=== PATIENT | female | born 1955 | race Caucasian/White ===

== ENCOUNTER 2018-08-12 09:49 | Inpatient (IN) | payer MEDICARE ==
[~2018-08-12] VITALS: Ht 162.6 cm; Wt 99.6 kg
[~2018-08-12 09:49] MED LIST: ASPIRIN 32325 MG/TAB PO; B-121000 MCG PO; CELEXA 20MG20 MG/TAB PO; DYAZIDE 25 MG-31 CAP PO; ESTRACE 1MG1 MG/TAB PO; FOLIC ACID0.4 MG PO; GLUCOPHAGE1000 MG PO; HEXAVITAMIN1 CAP PO; HUMALOG100 U/ML SC; LANTUS100 U/ML SC; NORCO 325 MG-7.1 TAB PO; PERCOCET 325 MG1 TA2 PO; PRAVACHOL 20MG20 MG PO; SIMETHICONE80 MG PO; SOMA 350MG350 MG/TAB PO; SYNTHROID0.075 MG/T PO; TUMS500 MG PO; XANAX .25M0.25 MG/TA PO
[2018-09-18] MEDS ORDERED: TRESIBA FL200 UNIT/1 SQ (05:42)
[2018-09-20] MEDS ORDERED: TRESIBA FL200 UNIT/1 SQ (14:00)
[2018-09-20] MEDS ORDERED: ASPIRIN 32325 MG/TA1 PO (14:01)
[2018-09-20] MEDS ORDERED: COLACE 100100 MG/CAP PO (14:01)
[2018-09-21] MEDS ORDERED: NORVASC 5MG5 MG/TAB PO (11:47)
[2018-09-21] MEDS ORDERED: NORCO 325 MG-7.1 TAB PO (12:03)
[2019-04-25] VITALS (10 sets, daily range): BP systolic 92–143; BP diastolic 47–99; PULSE 62–78; TEMP 97.8–98.1
[2019-04-25] MEDS ORDERED: COZAAR 50MG50 MG/TAB PO (07:44)
[2019-04-25] MEDS ORDERED: MAXZIDE-25MG TA1 TAB PO (07:45)
[2019-04-25] MEDS ORDERED: NOVOLOG 100U100 U/M1 SQ (07:49)
--- NOTE | 2019-04-25 12:40 | NUR ---
PATIENT BACK IN ROOM 328 POST OP. A&O. VSS. DENIES PAIN. PATIENT IS UNABLE TO MOVE BLE AT THIS TIME. LTK DRESSING IS CD&I WITH AQUACEL AND CRYOCUFF INPLACE. TEDS TO BLE. POSITIVE PEDAL PULSES TO BLE. HUSAIN TO DEPENDENT DRAINAGE WITH SMALL AMOUNTS OF CLEAR YELLOW URINE. IV FLUIDS INFUSING VIA PUMP. NO C/O N/V. LIQUIDS AT BEDSIDE. HEAD TO TOE ASSESSMENT WNL. AT BEDSIDE. CALL LIGHT IN REACH.
--- NOTE | 2019-04-25 13:28 | NUR ---
JOSE met with the patient and patient's , Misha, to discuss discharge plan. The patient lives in [place] with her . She reports independence with ADLs and has a cane, walker, and wheelchair. The patient's PCP is Dr. Clement Kinney and she receives her medications at [facility]. She reports no difficulties obtaining her meds. The patient's DPOA-HC is in EMR. The patient plans to return home with her and receive outpatient therapy at [facility] upon discharge. No additional needs at this time.
[2019-04-25] MEDS ORDERED: TRESIBA FL200 UNIT/1 SQ (16:48)
--- NOTE | 2019-04-25 20:45 | NUR ---
Pt. sitting up in bed at this time. Pt. is A&OX3, assessment complete. INT to rt. hand patent. Dressing to lt. knee CDI. Cryocuff to lt. knee. SCD's and TEDs on at this time. Pt. denies pain, call light within reach.
--- NOTE | 2019-04-25 22:52 | NUR ---
Pt. ambulated in the halls at this time. See activity.
[2019-04-26] VITALS: BP 134/72; PULSE 61; TEMP 98.3
[2019-04-26 03:52] VITALS: BP 115/48; PULSE 72; TEMP 97.8
[2019-04-26 06:29] LABS: HEMOGLOBIN 11.5 g/dl (12.5-16.0)
[2019-04-26 06:32] LABS: HEMATOCRIT 34.3 % (37.0-47.0)
--- NOTE | 2019-04-26 06:38 | NUR ---
Pt. slept off and on through the night. Pt. remains A&OX3. Dressing to lt. knee cdi. Pt. denie further needs at this time. Call light within reach.
--- NOTE | 2019-04-26 06:40 | NUR ---
awake resting in bed, bedside shift report received from RILEY Bill
[2019-04-26 06:43] LABS: CALCIUM 7.7 mg/dL (8.4-10.2); CREATININE, serum 0.91 (0.52-1.25)
[2019-04-26 07:00] VITALS: BP 141/50; PULSE 72; TEMP 97.9
--- NOTE | 2019-04-26 07:50 | NUR ---
resting in bed, azul catheter discontinued, full assessment completed, see interventions for further info, c/o pain and medicated with roxicodone 10mg
[2019-04-26] MEDS ORDERED: ULTRAM 50MG TAB50 MG PO (08:09)
--- NOTE | 2019-04-26 08:58 | NUR ---
physical therapy in to work with patient
--- NOTE | 2019-04-26 09:18 | NUR ---
occupational therapy now in to visit with patient
--- NOTE | 2019-04-26 11:15 | NUR ---
dr Nichols in to see patient, discharge instructions given to patient and her , verbalizes understanding
--- NOTE | 2019-04-26 11:37 | NUR ---
discharged per WC
== END 2019-04-26 11:37 | disposition home or self-care (01) | DRG 470 ==
LOC: JCC 10-25 07:30
PROVIDERS: Physician Assistant; ADMIT Orthopaedic Surgery
PROC: 0SRD0J9 Replacement of Left Knee Joint with Synthetic Substitute, Cemented, Open Approach (ICD-10-PCS; principal; 2019-04-25 10:15)
DX: M17.12 Unilateral primary osteoarthritis, left knee (principal); F32.9 Major depressive disorder, single episode, unspecified; I10 Essential (primary) hypertension; E78.00 Pure hypercholesterolemia, unspecified; F41.9 Anxiety disorder, unspecified; M21.062 Valgus deformity, not elsewhere classified, left knee; E03.9 Hypothyroidism, unspecified; E11.65 Type 2 diabetes mellitus with hyperglycemia; E66.9 Obesity, unspecified; Z68.37 Body mass index [BMI] 37.0-37.9, adult; J30.2 Other seasonal allergic rhinitis; F17.210 Nicotine dependence, cigarettes, uncomplicated; Z90.710 Acquired absence of both cervix and uterus; Z79.1 Long term (current) use of non-steroidal anti-inflammatories (NSAID); Z98.1 Arthrodesis status; Z88.5 Allergy status to narcotic agent
CPT/HCPCS: 99222; A4314; A9284; C1776; J0690; J1100; J1815; J2250; J2405; J2704; J3010; J3370; J7120

== ENCOUNTER 2018-09-18 02:53 | Inpatient (IN) | payer MEDICARE, OTHER ==
[~2018-09-18] VITALS: Ht 165.1 cm; Wt 104.1 kg
[2018-09-18] VITALS (11 sets, daily range): BP systolic 117–171; BP diastolic 47–99; PULSE 55–82; TEMP 97.9–98.6
[2018-09-18] MEDS ORDERED: TRESIBA FL200 UNIT/1 SQ (05:42)
[2018-09-18 06:12] LABS: INR 0.9 (0.8-3.0); PROTHROMBIN TIME 10.6 SECONDS (9.7-12.8)
[2018-09-18 10:21] LABS: BASO % 0.3 % (0.0-2.0); EOS # 0.1 (0.0-0.7); EOS % 1.6 % (0-4.0); GRAN # 4.4 (1.4-6.5); GRAN % 63.4 % (42.2-75.2); LYMPH # 1.8 (1.2-3.4); LYMPH % 25.5 % (20.0-51.0); MEAN CELL VOLUME 90 fl (80.0-100.0); MEAN CORPUSCULAR HEMOGLOBIN 29 pg (27.0-31.0); MEAN CORPUSCULAR HGB CONC 32 g/dl (33.0-37.0); MEAN PLATELET VOLUME 10.8 fl (7.4-10.4); MONO # 0.6 (0.1-0.6); MONO % 9.1 % (1.7-9.3); PLATELET COUNT 213 K/mm3 (130-400); RED BLOOD COUNT 4.13 M/mm3 (4.10-5.30); REDCELL DISTRIBUTION WIDTH-CV 13.5 % (11.5-14.5)
[2018-09-18 10:28] LABS: ALBUMIN 2.9 gm/dL (3.5-5.0); BILIRUBIN,TOTAL 0.1 mg/dL (0.0-1.0); CREATININE, serum 0.81 mg/dL (0.52-1.25); POTASSIUM 4.7 mmol/L (3.4-5.0); TOTAL PROTEIN 6.1 gm/dL (6.4-8.2)
[2018-09-19] VITALS: BP 165/53; PULSE 76; TEMP 98.9
[2018-09-19 04:00] VITALS: BP 158/49; PULSE 73; TEMP 97.6
[2018-09-19 06:43] LABS: BASO % 0.4 % (0.0-2.0); EOS # 0.1 (0.0-0.7); EOS % 0.9 % (0-4.0); GRAN # 5.6 (1.4-6.5); GRAN % 72.4 % (42.2-75.2); HEMOGLOBIN 11.9 g/dl (12.5-16.0); LYMPH # 1.4 (1.2-3.4); LYMPH % 17.9 % (20.0-51.0); MEAN CELL VOLUME 88 fl (80.0-100.0); MEAN CORPUSCULAR HEMOGLOBIN 30 pg (27.0-31.0); MEAN CORPUSCULAR HGB CONC 34 g/dl (33.0-37.0); MEAN PLATELET VOLUME 10.6 fl (7.4-10.4); MONO # 0.6 (0.1-0.6); PLATELET COUNT 193 K/mm3 (130-400); RED BLOOD COUNT 4.01 M/mm3 (4.10-5.30); REDCELL DISTRIBUTION WIDTH-CV 13.7 % (11.5-14.5)
[2018-09-19 06:44] LABS: HEMATOCRIT 35.4 % (37.0-47.0)
[2018-09-19 06:57] LABS: ALBUMIN 2.8 gm/dL (3.5-5.0); BILIRUBIN,TOTAL 0.2 mg/dL (0.0-1.0); CALCIUM 7.6 mg/dL (8.4-10.2); CREATININE, serum 0.82 mg/dL (0.52-1.25); POTASSIUM 4.4 mmol/L (3.4-5.0); TOTAL PROTEIN 5.8 gm/dL (6.4-8.2)
[2018-09-19 07:49] VITALS: BP 135/63; PULSE 63; TEMP 98
[2018-09-19 08:17] LABS: MUCOUS Present /lpf; PH 5 (5-8); URINE APPEARANCE Clear; URINE BACTERIA None Seen /hpf; URINE BILIRUBIN Negative (NEGATIVE); URINE BLOOD Negative (NEGATIVE); URINE COLOR Yellow; URINE GLUCOSE Negative (NEGATIVE); URINE KETONE Negative (NEGATIVE); URINE LEUKOCYTE ESTERASE Trace (NEGATIVE); URINE NITRATE Negative (NEGATIVE); URINE PROTEIN(semi-quant) 2+ (NEGATIVE); URINE UROBILINOGEN Negative (NEGATIVE)
[2018-09-19 08:33] LABS: COLLECTION METHOD CLEAN CATCH
[2018-09-19 11:53] VITALS: BP 153/60; PULSE 62; TEMP 97.9
[2018-09-19 15:56] VITALS: BP 169/62; PULSE 61; TEMP 97.8
[2018-09-19 19:45] VITALS: BP 153/74; PULSE 72; TEMP 98.2
[2018-09-20 01:00] VITALS: BP 170/68; PULSE 73; TEMP 99.1
[2018-09-20 04:12] VITALS: BP 167/76; PULSE 76; TEMP 98.6
[2018-09-20 06:12] LABS: HEMATOCRIT 36.8 % (37.0-47.0)
[2018-09-20 08:24] VITALS: BP 144/52; PULSE 66; TEMP 98.5
[2018-09-20 12:06] VITALS: BP 136/52; PULSE 67; TEMP 98.5
[2018-09-20] MEDS ORDERED: TRESIBA FL200 UNIT/1 SQ (14:00)
[2018-09-20] MEDS ORDERED: COLACE 100100 MG/CAP PO (14:01)
[2018-09-20] MEDS ORDERED: ASPIRIN 32325 MG/TA1 PO (14:01)
[2018-09-20 16:27] VITALS: BP 176/93; PULSE 76; TEMP 98.6
[2018-09-21 03:53] VITALS: BP 159/58; PULSE 75; TEMP 98.4
[2018-09-21 09:05] VITALS: BP 154/60; PULSE 70; TEMP 97.7
[2018-09-21 11:35] VITALS: BP 178/68; PULSE 71; TEMP 97.8
[2018-09-21] MEDS ORDERED: NORVASC 5MG5 MG/TAB PO (11:47)
[2018-09-21] MEDS ORDERED: NORCO 325 MG-7.1 TAB PO (12:03)
== END 2018-09-21 13:15 | disposition home or self-care (01) | DRG 482 ==
LOC: SURG 02:53
PROVIDERS: Hospitalist; Nurse Practitioner; Orthopaedic Surgery; Physician Assistant
PROC: 0QH634Z Insertion of Internal Fixation Device into Right Upper Femur, Percutaneous Approach (ICD-10-PCS; principal; 2018-09-18 11:00)
DX: S72.044A Nondisplaced fracture of base of neck of right femur, initial encounter for closed fracture (principal); W18.30XA Fall on same level, unspecified, initial encounter; E11.42 Type 2 diabetes mellitus with diabetic polyneuropathy; I10 Essential (primary) hypertension; E11.65 Type 2 diabetes mellitus with hyperglycemia; E05.00 Thyrotoxicosis with diffuse goiter without thyrotoxic crisis or storm; Z85.030 Personal history of malignant carcinoid tumor of large intestine; F17.210 Nicotine dependence, cigarettes, uncomplicated; E78.5 Hyperlipidemia, unspecified; F41.8 Other specified anxiety disorders; Z79.4 Long term (current) use of insulin
CPT/HCPCS: 99222-AI; 99232-AI; 99239; A9284; C1713; J0690; J1815; J2250; J2270; J2704; J3010; J7120

== ENCOUNTER 2021-10-08 16:25 | Emergency (ER) | payer MEDICARE ==
[~2021-10-08] VITALS: Ht 162.6 cm; Wt 102.3 kg
[~2021-10-08 16:25] MED LIST changes: +ASPIRIN 32325 MG/TA1 PO; +COLACE 100100 MG/CAP PO; +COZAAR 50MG50 MG/TAB PO; +MAXZIDE-25MG TA1 TAB PO; +NORVASC 5MG5 MG/TAB PO; +NOVOLOG 100U100 U/M1 SQ; +TRESIBA FL200 UNIT/1 SQ; +ULTRAM 50MG TAB50 MG PO
[2021-10-08 17:27] LABS: HEMATOCRIT 41.7 % (37.0-47.0); HEMOGLOBIN 13.9 g/dl (12.5-16.0); MEAN CELL VOLUME 87 fl (80.0-100.0); MEAN CORPUSCULAR HEMOGLOBIN 29 pg (27.0-31.0); MEAN CORPUSCULAR HGB CONC 33 g/dl (33.0-37.0); MEAN PLATELET VOLUME 11.2 fl (7.4-10.4); PLATELET COUNT 247 K/mm3 (130-400); RED BLOOD COUNT 4.81 M/mm3 (4.10-5.30); REDCELL DISTRIBUTION WIDTH-CV 14.6 % (11.5-14.5)
[2021-10-08 17:47] LABS: ALBUMIN 2.5 gm/dL (3.4-4.8); BILIRUBIN,TOTAL 0.5 mg/dL (0.2-1.2); CALCIUM 8.9 mg/dL (8.4-10.2); CREATININE, serum 2.01 mg/dL (0.57-1.11); POTASSIUM 4.1 mmol/L (3.5-4.5); TOTAL PROTEIN 6.1 gm/dL (6.2-8.1)
[2021-10-08 18:05] LABS: BAND 8 % (0-10); LYMPHOCYTE 6 % (20.0-51.0); NEUTROPHILS 85 % (42.0-75.2); PLATELET ESTIMATE NORMAL (NORMAL)
[2021-10-08 22:26] VITALS: BP 119/63; PULSE 85; TEMP 98.6
== END 2021-10-08 22:46 | disposition short-term general hospital (02) ==
LOC: COL.ER 16:25
PROVIDERS: Obstetrics & Gynecology
DX: N75.1 Abscess of Bartholin's gland (principal); I10 Essential (primary) hypertension; E03.9 Hypothyroidism, unspecified; E05.00 Thyrotoxicosis with diffuse goiter without thyrotoxic crisis or storm; E10.9 Type 1 diabetes mellitus without complications; Z79.4 Long term (current) use of insulin; Z79.890 Hormone replacement therapy; Z79.899 Other long term (current) drug therapy
CPT/HCPCS: J2543; J7030

== ENCOUNTER 2022-04-22 12:03 | Inpatient (IN) | payer MEDICARE ==
[~2022-04-22] VITALS: Ht 175.3 cm; Wt 80.1 kg
[2022-04-22] VITALS (605 sets, daily range): BP systolic 140–173; BP diastolic 60–117; PULSE 72–81; TEMP 96.6–97.9; O2SAT 80–100
--- NOTE | 2022-04-22 13:51 | NUR ---
PT ARRIVED VIA EMS AT 1351, MOVED TO ICU BED, PLACED ON MONITORING. PT AWAKE BUT CONFUSED, ORIENTED TO SELF ONLY. PT BECAME COMBATIVE TO STAFF. HOSPITALIST NOTIFIED OF PT ARRIVAL. WILL CONTINUE W/ ADMISSION.
[2022-04-22 14:59] LABS: BASO % 0.2 % (0.0-2.0); GRAN # 8.2 K/mm3 (1.4-6.5); GRAN % 84.2 % (42.2-75.2); HEMATOCRIT 22.4 % (37.0-47.0); LYMPH # 1.1 K/mm3 (1.2-3.4); LYMPH % 11.4 % (20.0-51.0); MEAN CELL VOLUME 99 fl (80.0-100.0); MEAN CORPUSCULAR HEMOGLOBIN 31 pg (27-31); MEAN CORPUSCULAR HGB CONC 31 g/dl (33.0-37.0); MEAN PLATELET VOLUME 10.8 fl (7.4-10.4); MONO # 0.4 K/mm3 (0.1-0.6); MONO % 3.7 % (1.7-9.3); PLATELET COUNT 228 K/mm3 (130-400); RED BLOOD COUNT 2.26 M/mm3 (4.10-5.30); REDCELL DISTRIBUTION WIDTH-CV 16.6 % (11.5-14.5)
[2022-04-22 15:04] LABS: INR 1.1 (0.8-3.0); PROTHROMBIN TIME 13.1 SECONDS (9.7-12.8)
[2022-04-22 15:30] LABS: ALBUMIN 2.5 gm/dL (3.4-4.8); BILIRUBIN,TOTAL 0.6 mg/dL (0.2-1.2); C-REACTIVE PROTEIN 2.43 mg/dL (0.00-0.50); CALCIUM 7.8 mg/dL (8.4-10.2); CREATININE, serum 3.01 mg/dL (0.57-1.11); TOTAL PROTEIN 5.4 gm/dL (6.2-8.1)
[2022-04-22 15:42] LABS: POTASSIUM 5.8 mmol/L (3.5-4.5)
[2022-04-22 15:47] LABS: TROPONIN-I 0.037 ng/mL (0.00-0.033)
--- NOTE | 2022-04-22 15:50 | NUR ---
BESIDE CENTRAL LINE INSERTION. RIJ.
[2022-04-22] MEDS ORDERED: TYLENOL 325MG325 MG PO (16:29)
[2022-04-22] MEDS ORDERED: SYMMETREL100 MG PO (16:30)
[2022-04-22] MEDS ORDERED: NATURAL C500 MG PO (16:30)
[2022-04-22] MEDS ORDERED: ASPIRIN 81M81 MG/TA2 PO (16:31)
[2022-04-22] MEDS ORDERED: COREG12.5 MG PO (16:32)
[2022-04-22] MEDS ORDERED: PLAVIX 75MG TAB75 MG PO (16:33)
[2022-04-22] MEDS ORDERED: CELEBREX 200MG200 MG PO (16:33)
[2022-04-22] MEDS ORDERED: CYMBALTA 30MG30 MG PO (16:34)
[2022-04-22] MEDS ORDERED: HUMALOG100 U/ML (16:45)
[2022-04-22] MEDS ORDERED: LANTUS SOLOS100 U/ML (16:46)
[2022-04-22] MEDS ORDERED: SALONPAS1 EACH TP (16:52)
[2022-04-22] MEDS ORDERED: NORCO 325 MG-101 TAB PO (16:54)
[2022-04-22] MEDS ORDERED: LEADER CLE17 GM/Dose PO (16:54)
[2022-04-22] MEDS ORDERED: PREPH RC (16:55)
[2022-04-22] MEDS ORDERED: SALINE 45 ML45 ML NS (16:56)
[2022-04-22] MEDS ORDERED: SEROQUEL 2525 MG/TAB PO (16:57)
[2022-04-22] MEDS ORDERED: SEROQUEL 2525 MG/TAB (16:57)
[2022-04-22] MEDS ORDERED: PHARMASSURE CHE30 MG PO (16:59)
--- NOTE | 2022-04-22 17:38 | NUR ---
CENTRAL LINE PLACEMENT PROCEDURE TIMEOUT DONE AT 1523. LINE PLACED BY DR LANDERS AT 1545. STATES AFTER XRAY CONFIRMATION LINE IS GOOD TO USE.
[2022-04-22] MEDS ORDERED: MELATIN 3 MG-11 TAB PO (19:21)
--- NOTE | 2022-04-22 19:21 | NUR ---
PT MED REC COMPLETD BASED ON MED LIST FROM PATIENTS' HALFWAY AT [facility].
--- NOTE | 2022-04-22 20:15 | NUR ---
Assessment complete and charted. Patient given bed bath and repositioned.
[2022-04-22 21:08] LABS: HEMOGLOBIN 8.6 g/dl (12.5-16.0)
[2022-04-23] VITALS (1001 sets, daily range): BP systolic 130–155; BP diastolic 54–74; PULSE 72–83; TEMP 97.1–98.1; O2SAT 75–100
--- NOTE | 2022-04-23 01:32 | NUR ---
BG 60. Given PRN dextrose
[2022-04-23 05:18] LABS: PROTHROMBIN TIME 11.5 SECONDS (9.7-12.8)
[2022-04-23 05:20] LABS: BASO # 0.1 K/mm3 (0.0-0.2); BASO % 0.5 % (0.0-2.0); EOS # 0.1 K/mm3 (0.0-0.7); EOS % 0.8 % (0.0-4.0); GRAN % 64.3 % (42.2-75.2); LYMPH # 2.3 K/mm3 (1.2-3.4); LYMPH % 25.1 % (20.0-51.0); MEAN CORPUSCULAR HGB CONC 34 g/dl (33.0-37.0); MEAN PLATELET VOLUME 10.3 fl (7.4-10.4); MONO # 0.8 K/mm3 (0.1-0.6); MONO % 8.9 % (1.7-9.3); PLATELET COUNT 207 K/mm3 (130-400); REDCELL DISTRIBUTION WIDTH-CV 16.8 % (11.5-14.5)
[2022-04-23 05:21] LABS: HEMATOCRIT 24.8 % (37.0-47.0); HEMOGLOBIN 8.3 g/dl (12.5-16.0); MEAN CELL VOLUME 92 fl (80.0-100.0); MEAN CORPUSCULAR HEMOGLOBIN 31 pg (27-31)
[2022-04-23 05:27] LABS: ALBUMIN 2.3 gm/dL (3.4-4.8); BILIRUBIN,TOTAL 0.6 mg/dL (0.2-1.2); CALCIUM 7.6 mg/dL (8.4-10.2); CREATININE, serum 2.37 mg/dL (0.57-1.11); MAGNESIUM 1.9 mg/dL (1.6-2.6); POTASSIUM 3.8 mmol/L (3.5-4.5); TOTAL PROTEIN 5.4 gm/dL (6.2-8.1)
[2022-04-23 05:48] LABS: TROPONIN-I 0.033 ng/mL (0.00-0.033); TSH w REFLEX 84.271 uIU/mL (0.350-4.940)
--- NOTE | 2022-04-23 07:00 | NUR ---
BEDSIDE REPORT RECEIVED FROM RILEY SALGADO. PT APPEARS TO BE SLEEPING AT THIS TIME. RIJ TLC IN PLACE; FLUIDS INFUSING AT THIS TIME. FC TO DEPENDENT DRAINAGE RECTAL TUBE IN PLACE AND DRAINING. MITTENS ON PATIENT TO PREVENT PT FROM PULLING AT LINES AND TUBES.
--- NOTE | 2022-04-23 07:29 | NUR ---
Report given to Cindy LIN
--- NOTE | 2022-04-23 09:20 | NUR ---
The patient is sleeping. JOSE contacted the patient's , Misha (ph#[phone]), to discuss discharge plan. The patient resides at [facility] for long-term care. Misha states that she has been living there since 12/09/21. The patient's PCP is Dr. Clement Kinney and her DPOA-HC is in EMR. It designates her . Misha states that the plan is for the patient to return back to [facility] upon discharge. JOSE contacted and faxed updates to [facility]. SW to continue to follow. *Discharge plan: [facility]*
--- NOTE | 2022-04-23 10:01 | NUR ---
THIS NURSE SPOKE WITH DR. CIFUENTES REGARDING PLAN FOR PT. DR. CIFUNETES STATES SHE HAS NOT YET SEEN PT, SO SHE DOES NOT YET HAVE A PLAN. DR. CIFUENTES PLANS TO SEE PT TODAY; NO PROCEDURES TODAY.
--- NOTE | 2022-04-23 17:05 | NUR ---
PT TRANSFERED TO SURGICAL FLOOR ROOM 345. REPORT GIVEN TO RILEY ANDERSON PRIOR TO TRANSFEREING PT. PT'S BELONGINGS CONSISTING OF SET OF PAJAMAS, BALLOON, CARD, AND STUFFED ANIMAL ALL TAKEN TO ROOM 345. RILEY ANDERSON MADE AWARE OF PT'S ARRIVAL TO 345. BED ALARM TURNED ON. PT RESTING COMFORTABLY; OFFERS NO COMPLAINTS.
[2022-04-23 18:23] LABS: HEMATOCRIT 25.9 % (37.0-47.0); HEMOGLOBIN 8.6 g/dl (12.5-16.0)
--- NOTE | 2022-04-23 22:05 | NUR ---
Patient assessed around 1940. Alert and oriented to self. Complained of left sided pain and given PRN APAP. Has indwelling azul catheter, as well as a rectal tube. Dressing to bottom CDI. 1+ edema BUE and BLE. In bed with call light within reach. Bed alarm on.
[2022-04-24 03:41] VITALS: BP 153/56; PULSE 80; TEMP 97.7
--- NOTE | 2022-04-24 05:54 | NUR ---
Patient has been awake most of shift. Needed redirection to time, place, and situation, but very forgetful. Continues on IV fluids per orders. Patient did not have output through rectal tube. Indwelling azul catheter in place. Mitts put on patient due to patient pulling at triple lumen central line to right IJ. Redressed. Has been NPO since midnight for EGD today. Did take medications with sips of water. In bed with call light within reach. Bed alarm on.
[2022-04-24 07:08] LABS: BASO % 0.5 % (0.0-2.0); EOS # 0.2 K/mm3 (0.0-0.7); EOS % 1.9 % (0.0-4.0); GRAN # 5.2 K/mm3 (1.4-6.5); GRAN % 67.5 % (42.2-75.2); LYMPH # 1.7 K/mm3 (1.2-3.4); LYMPH % 22.4 % (20.0-51.0); MEAN CELL VOLUME 94 fl (80.0-100.0); MEAN CORPUSCULAR HGB CONC 33 g/dl (33.0-37.0); MEAN PLATELET VOLUME 10.5 fl (7.4-10.4); MONO # 0.6 K/mm3 (0.1-0.6); MONO % 7.2 % (1.7-9.3); PLATELET COUNT 202 K/mm3 (130-400); RED BLOOD COUNT 2.51 M/mm3 (4.10-5.30); REDCELL DISTRIBUTION WIDTH-CV 17.5 % (11.5-14.5)
[2022-04-24 07:14] LABS: HEMATOCRIT 23.6 % (37.0-47.0); HEMOGLOBIN 7.8 g/dl (12.5-16.0); MEAN CORPUSCULAR HEMOGLOBIN 31 pg (27-31)
--- NOTE | 2022-04-24 07:14 | NUR ---
UPON ASSESSMENT OF THIS PATIENT AFTER SHIFT REPORT IT WAS DISCOVERED BY THIS NURSE THAT PATIENT HAD COMPLETELY DISLODGED RIGHT SIDED IJ CENTRAL LINE. CATHETER INTACT WITH TIP. SUTURES HOLDING LINE IN PLACE REMOVED AND LINE DISCARDED. INFORMED DR ASENCIO AND KEMAR WHO ARE BOTH ON PATIENT CASE. VERBAL ORDER FROM KEMAR TO ATTEMPT TO START PIV AT THIS TIME OVER PICC PLACEMENT. PATIENT SCHEDULED FOR EGD/COLON LATER THIS AFTERNOON.
[2022-04-24 07:18] LABS: ALBUMIN 2.3 gm/dL (3.4-4.8); BILIRUBIN,TOTAL 0.4 mg/dL (0.2-1.2); CALCIUM 7.7 mg/dL (8.4-10.2); CREATININE, serum 1.55 mg/dL (0.57-1.11); POTASSIUM 3.5 mmol/L (3.5-4.5); TOTAL PROTEIN 5.2 gm/dL (6.2-8.1)
[2022-04-24 07:41] VITALS: BP 140/68; PULSE 81; TEMP 97.7
--- NOTE | 2022-04-24 10:21 | NUR ---
Initial visit; Patient thanked Mechanical Supervisor for looking in on her. She says she isn't doing well but was receptive to being kept in Mechanical Supervisor's prayers. Mechanical Supervisor offered God's blessings.
--- NOTE | 2022-04-24 11:03 | NUR ---
Screen Printing Inspector faxed clinical updates to [facility].
[2022-04-24 11:56] VITALS: BP 149/69; PULSE 76
--- NOTE | 2022-04-24 19:49 | NUR ---
ASSESSMENT COMPLETE. PT. LYING IN BED ASKING FOR AND WANTING TO GO HOME. PT. ALERT BUT NOT ORIENTED. PT. REORIENTED TO HOSPITAL ROOM AND DISTRACTED. PERIWICK IN PLACE WITH NO URINE OUTPUT. PT. HAS NOT URINATED SINCE HUSAIN HAS BEEN TAKEN OUT PER PREVIOUS NURSE. IV TO RIGHT FOREARM INFUSING WITH 1/2 NS AT 60 ML/HR. SMALL SCAB TO RIGHT HEEL. HEEL PROTECTORS IN PLACE. CALL LIGHT IN REACH. NO FURTHER NEEDS AT THIS TIME. WILL CLOSELY MONITOR.
[2022-04-24 21:10] VITALS: BP 159/57; PULSE 84; TEMP 97.7
[2022-04-25 00:21] VITALS: BP 176/74; PULSE 87; TEMP 98
--- NOTE | 2022-04-25 03:33 | NUR ---
PT. PULLED OUT IV. BLEEDING CONTROLLED. PER VERBAL ORDER A NEW IV DOES NOT NEED TO BE PLACED.
[2022-04-25 04:06] VITALS: BP 166/65; PULSE 81; TEMP 97.9
--- NOTE | 2022-04-25 05:15 | NUR ---
PT. SLEPT THROUGHOUT THE NIGHT, OCCASIONALLY WAKING UP CONFUSED. PT. WAS REORIENTED OR DISTRACTED. PT. WAS INCONTIENT OF STOOL AND URINE DURING THE NIGHT. PER PREVIOUS NOTE, PT PULLED HER IV OUT. NO FURTHER NEEDS. WILL CONTINUE TO MONITOR.
[2022-04-25 06:46] LABS: BASO % 0.5 % (0.0-2.0); EOS # 0.2 K/mm3 (0.0-0.7); EOS % 2.9 % (0.0-4.0); GRAN # 5.5 K/mm3 (1.4-6.5); GRAN % 66.2 % (42.2-75.2); LYMPH # 1.9 K/mm3 (1.2-3.4); LYMPH % 22.7 % (20.0-51.0); MEAN CELL VOLUME 95 fl (80.0-100.0); MEAN CORPUSCULAR HGB CONC 33 g/dl (33.0-37.0); MEAN PLATELET VOLUME 10.7 fl (7.4-10.4); MONO # 0.6 K/mm3 (0.1-0.6); MONO % 7.5 % (1.7-9.3); PLATELET COUNT 192 K/mm3 (130-400); RED BLOOD COUNT 2.71 M/mm3 (4.10-5.30); REDCELL DISTRIBUTION WIDTH-CV 17.6 % (11.5-14.5)
[2022-04-25 06:56] LABS: HEMATOCRIT 25.8 % (37.0-47.0); HEMOGLOBIN 8.4 g/dl (12.5-16.0); MEAN CORPUSCULAR HEMOGLOBIN 31 pg (27-31)
[2022-04-25 07:10] LABS: ALBUMIN 2.5 gm/dL (3.4-4.8); BILIRUBIN,TOTAL 0.5 mg/dL (0.2-1.2); CALCIUM 7.7 mg/dL (8.4-10.2); POTASSIUM 3.5 mmol/L (3.5-4.5); TOTAL PROTEIN 5.9 gm/dL (6.2-8.1)
[2022-04-25 08:00] VITALS: BP 174/75; PULSE 90; TEMP 97.9
[2022-04-25 11:09] VITALS: BP 163/71; PULSE 89; TEMP 97.8
--- NOTE | 2022-04-25 12:11 | NUR ---
Cripple Cutter is informed by patient medical team (Dr. Obrien, Gabrielle, Director Software, and Shilpa RN) that patient is medically stable for discharge back to in [place] where they currently reside. Cripple Cutter contacted patient [facility] [place] ([phone]) and spoke to Heather. [place] to contact DON and will call this Cripple Cutter back to confirm plan of care. *Discharge plan: Awaiting confirmation from to return for discharge*
--- NOTE | 2022-04-25 12:17 | NUR ---
Residential Real Estate Agent contacted patient spouse Misha to update; spouse may not be able to transport patient back to due to her mobility but he is in support of plan. He requests a call back when plan is confirmed and to identify mode of transportation. Residential Real Estate Agent continues to follow.
--- NOTE | 2022-04-25 13:25 | NUR ---
Insurance Consultant again contacted [facility] ([phone]). SAFETY FIRE BOSS informs the nurse is "aware of situation" and will call this Insurance Consultant back to confirm discharge plan of care for patient to return to [facility] today.
--- NOTE | 2022-04-25 13:33 | NUR ---
Received report from date night sitter. Patient here for GI bleed. Patient alert to self only. Assessment performed. AM meds administered. Dressing to coccyx changed. Call light within reach.
--- NOTE | 2022-04-25 14:48 | NUR ---
Attempted to call [facility]. Cannot accept patients on the weekends due to low staffing and transportation issues.
--- NOTE | 2022-04-25 15:06 | NUR ---
Shilpa RN informs this Waste Disposal Plant Operator that the [facility] nurse contacted to inform they have a "skeletal staff and no transportation available over the holiday weekend." They anticipate no abiliy to return patient to their facility where she currently resides until the weekend is over. Dr. Obrien, Gabrielle Vehicle Upholsterer and patient spouse at bedside updated. *Discharge plan: return [facility] where patient currently resides*
[2022-04-25 16:00] VITALS: BP 166/65; PULSE 74; TEMP 97.9
--- NOTE | 2022-04-25 17:57 | NUR ---
Patient incontinent of stool and urine. Changed bedding, gown, and pressure dressing. Patient combative. Applied mittens. Call light near.
[2022-04-25 21:35] VITALS: BP 152/51; PULSE 73; TEMP 97.8
[2022-04-26 00:15] VITALS: BP 145/66; PULSE 75; TEMP 98.7
[2022-04-26 04:21] VITALS: BP 142/62; PULSE 80; TEMP 98.1
--- NOTE | 2022-04-26 04:52 | NUR ---
Pt is not A&O, had difficulty telling me her name and date of . Pt has been combative throughout the night and spit out her medication on the first administration. Pt shouting out throughout the night and attempting to removed mitts. Pt denies pain throughout the shift. Per report the correction that she is from will not take her until possibly Wednesday (04/28) due a staffing shortage. All other needs met at this time, call light within reach.
[2022-04-26 07:22] LABS: HEMATOCRIT 24.1 % (37.0-47.0); HEMOGLOBIN 7.9 g/dl (12.5-16.0)
[2022-04-26 07:27] LABS: CALCIUM 7.7 mg/dL (8.4-10.2); CREATININE, serum 0.9 mg/dL (0.57-1.11); MAGNESIUM 1.6 mg/dL (1.6-2.6); POTASSIUM 3.7 mmol/L (3.5-4.5)
[2022-04-26 08:33] VITALS: BP 169/83; PULSE 88; TEMP 98.2
[2022-04-26 11:30] VITALS: BP 150/50; PULSE 72; TEMP 98.2
--- NOTE | 2022-04-26 15:20 | NUR ---
Received report from lens engraver. Patient alert to self. VSS. Assessment performed. AM meds administered. AM hygiene provided, bedding changed. Patient fed breakfast. Call light within reach.
[2022-04-26 15:34] VITALS: BP 168/55; PULSE 75; TEMP 98.5
[2022-04-26 17:57] LABS: HEMATOCRIT 24.6 % (37.0-47.0); HEMOGLOBIN 7.8 g/dl (12.5-16.0)
--- NOTE | 2022-04-26 20:00 | NUR ---
PT MOANING IN BED. DISORIENTED. CALM AT THIS TIME. MITS CONTINUED DUE TO GRABBING AT THINGS. SPLIILING . HAS ELMER PULLED IV AND FC CATH OUT. HAS MEPELEX TO COCCYX . CDI. PT DOES TAKE CRUSHES PILLS IN APPLESAUCE WELL. REFUSED DRINK. PT INCONTINENT OF URINE. BED ALARM SET. CALL LIGHT IN REACH. PTTAKES GOWN OFF.
[2022-04-26 20:29] VITALS: BP 146/46; PULSE 74; TEMP 97.8
[2022-04-27 00:02] VITALS: BP 155/70; PULSE 79; TEMP 97.4
--- NOTE | 2022-04-27 01:53 | NUR ---
PT RESTING AT THIS TIME. PT THROWS OF GOWN AND BLANKET. REPLACED. REPOSTIONED.
[2022-04-27 04:38] VITALS: BP 171/63; PULSE 85; TEMP 98.2
--- NOTE | 2022-04-27 06:23 | NUR ---
PT TOOK AM MEDS WITH HOLGER. PT CALM AND COOPERATIVE. NO NEEDS AT THIS TIME.
[2022-04-27 06:44] LABS: BASO # 0.1 K/mm3 (0.0-0.2); BASO % 0.6 % (0.0-2.0); EOS # 0.1 K/mm3 (0.0-0.7); EOS % 1.3 % (0.0-4.0); GRAN # 5.9 K/mm3 (1.4-6.5); GRAN % 74.8 % (42.2-75.2); LYMPH # 1.3 K/mm3 (1.2-3.4); LYMPH % 16.3 % (20.0-51.0); MEAN CELL VOLUME 99 fl (80.0-100.0); MEAN CORPUSCULAR HGB CONC 31 g/dl (33.0-37.0); MEAN PLATELET VOLUME 10.4 fl (7.4-10.4); MONO # 0.5 K/mm3 (0.1-0.6); MONO % 6.6 % (1.7-9.3); PLATELET COUNT 195 K/mm3 (130-400); RED BLOOD COUNT 2.67 M/mm3 (4.10-5.30)
[2022-04-27 06:59] LABS: CALCIUM 7.7 mg/dL (8.4-10.2); CREATININE, serum 1.04 mg/dL (0.57-1.11); POTASSIUM 3.6 mmol/L (3.5-4.5)
[2022-04-27 07:07] LABS: HEMATOCRIT 26.4 % (37.0-47.0); HEMOGLOBIN 8.3 g/dl (12.5-16.0); MEAN CORPUSCULAR HEMOGLOBIN 31 pg (27-31)
[2022-04-27 07:47] VITALS: BP 167/66; PULSE 92; TEMP 97.6
[2022-04-27 11:33] VITALS: BP 143/68; PULSE 74; TEMP 98.1
[2022-04-27 16:26] VITALS: BP 176/64; PULSE 66; TEMP 97.6
--- NOTE | 2022-04-27 16:30 | NUR ---
PATIENT BS WAS 29, AND 31 ON RECHECK. PATIENT WAS HYPERGLYCEMIA EARLY THIS AM AND INSULIN CHANGES WERE MADE, SEE MAR. GAVE JUICE X3. BS NOW 43. PATIENT IS CONFUSED AND DOESN'T HAVE AN IV SITE SHE HAD BEEN PULLING THEM OUT. CALLED , SEE ORDERS. RE-STARTED 22 GAUGE IV ON THIRD ATTEMPT INTO LEFT WRIST. PATIENT IS A VERY DIFFICULT IV STICK. GAVE AMP OF D5O PER ORDERS. WILL CONTINUE TO MONITOR.
--- NOTE | 2022-04-27 17:35 | NUR ---
BS IS NOW 171
[2022-04-27 20:15] VITALS: BP 165/77; PULSE 72; TEMP 97.4
--- NOTE | 2022-04-27 21:27 | NUR ---
PATIENT IN BED, VERY DROWSY AND HARD TO AWAKEN. HS MEDS ADMINISTERED CRUSHED IN APPLESAUCE. BS WAS 141, NO SSI REQUIRED. MITTS REMAIN IN PLACE. IV TO L WRIST PATENT AND FLUSHED.
[2022-04-28] VITALS (7 sets, daily range): BP systolic 131–185; BP diastolic 48–92; PULSE 72–88; TEMP 97.6–98.8
[2022-04-28 06:33] LABS: BASO % 0.5 % (0.0-2.0); EOS # 0.1 K/mm3 (0.0-0.7); EOS % 1.3 % (0.0-4.0); GRAN # 6.5 K/mm3 (1.4-6.5); GRAN % 74.5 % (42.2-75.2); LYMPH # 1.4 K/mm3 (1.2-3.4); LYMPH % 15.6 % (20.0-51.0); MEAN CELL VOLUME 95 fl (80.0-100.0); MEAN CORPUSCULAR HGB CONC 33 g/dl (33.0-37.0); MEAN PLATELET VOLUME 10.6 fl (7.4-10.4); MONO # 0.7 K/mm3 (0.1-0.6); MONO % 7.9 % (1.7-9.3); PLATELET COUNT 220 K/mm3 (130-400); RED BLOOD COUNT 2.81 M/mm3 (4.10-5.30); REDCELL DISTRIBUTION WIDTH-CV 18.6 % (11.5-14.5)
[2022-04-28 06:35] LABS: HEMATOCRIT 26.7 % (37.0-47.0); HEMOGLOBIN 8.8 g/dl (12.5-16.0); MEAN CORPUSCULAR HEMOGLOBIN 31 pg (27-31)
[2022-04-28 06:43] LABS: CALCIUM 8.2 mg/dL (8.4-10.2); CREATININE, serum 0.8 mg/dL (0.57-1.11); POTASSIUM 3.5 mmol/L (3.5-4.5)
--- NOTE | 2022-04-28 08:00 | NUR ---
PATIENT IS CONFUSED AND DROWSY THIS AM. PATIENT ARROUSES TO VERBAL STIMULI BUT FALLS ASLEEP FREQUENTLY. PATIENT NEEDS ASSISTANCE WITH EATING. MEDS CRUSHED & GIVEN IN APPLESAUCE. AM BS WAS 203, SSI GIVEN. LEAD BI DEVELOPER ASSISTING PATIENT TO EAT BREAKFAST TRAY. LEFT WRIST IV TO INT. PT/OT/ST CONSULTED. PATIENT IS A 2 MAX ASSIST WITH ACTIVITIY. INCONTIENT OF BOWL/BLADDER. NOTED SKIN ISSUES, SEE CHARTING. MATRESS PAD INPLACE. SCD'S TO BLE. HEAD TO TOE ASSESSMENT COMPLETE. CALL LIGHT IN REACH. BED ALARM ON.
[2022-04-28] MEDS ORDERED: NORVASC 5MG5 MG/TAB PO (09:30)
[2022-04-28] MEDS ORDERED: LIPITOR20 MG PO (09:30)
[2022-04-28] MEDS ORDERED: FERROUS SU325 MG/TAB PO (09:30)
[2022-04-28] MEDS ORDERED: PROTONIX 40MG T40 MG PO (09:31)
[2022-04-28] MEDS ORDERED: LEVOXYL0.1 MG PO (09:33)
[2022-04-28] MEDS ORDERED: NOVOLOG 100U100 U/M1 SQ (09:34)
--- NOTE | 2022-04-28 15:15 | NUR ---
Production Engineer attended clinical rounds with the team and patient is ready for discharge. JOSE contacted Shilpa HICKEY at [facility] who stated they have found out they have an outbreak of COVID and are critically low staffed so they cannot take patient back today. Shilpa advised they can pickle pumper patient tomorrow at 1000. JOSE had contacted patient's Misha this morning to advise of likely discharge and to review the IM form over the phone. Misha verbalized understanding and gave verbal consent as signature. JOSE placed form on chart. JOSE left Misha a message later in the afternoon to notify him that patient will actually discharge tomorrow. COVID test ordered for patient. Discharge Plan: [facility] SNF tomorrow
--- NOTE | 2022-04-28 22:32 | NUR ---
PT VERY DROWSY. PM MEDS CRUSHED AND PUT IN PUDDING. ALERT TO SELF. ASSESSMENT COMPLETE. BED ALARM ON.
[2022-04-29 03:26] VITALS: BP 158/61; PULSE 85; TEMP 97.9
--- NOTE | 2022-04-29 05:58 | NUR ---
RESTED THROUGH THE NIGHT WITHOUT INCIDENT. AM MEDS GIVEN CRUSHED W APPLESAUCE. NEEDS MET.
[2022-04-29 07:18] VITALS: BP 165/84; PULSE 86; TEMP 97.8
--- NOTE | 2022-04-29 08:00 | NUR ---
PATIENT IS CONFUSED AND DROWSY THIS AM. PATIENT ARROUSES TO VERBAL STIMULI BUT FALLS ASLEEP FREQUENTLY DURING ASSESSMENT. PATIENT NEEDS ASSISTANCE WITH EATING. MEDS CRUSHED & GIVEN IN APPLESAUCE. AM BS WAS 349, SSI GIVEN. BRANCH DIRECTOR ASSISTING PATIENT TO EAT BREAKFAST TRAY. LEFT WRIST IV TO INT. PT/OT/ST CONSULTED. PATIENT IS A 2 MAX ASSIST WITH ACTIVITIY. INCONTIENT OF BOWL/BLADDER. NOTED SKIN ISSUES, SEE CHARTING. MATRESS PAD INPLACE. SCD'S TO BLE. HEAD TO TOE ASSESSMENT COMPLETE. CALL LIGHT IN REACH. BED ALARM ON. PATIENT PLANNING TO DISCHARGE BACK TO [place] AROUND 1000.
[2022-04-29] MEDS ORDERED: LEVEMIR100 U/ML SQ (09:01)
--- NOTE | 2022-04-29 10:20 | NUR ---
PATIENT DISCHARGE BACK TO [place]. PATIENT IS DRESSED AND NO PERSONAL BELONINGS TO PACK. DC'D IV SITE AND COVERED WITH GAUZE & COBAN. GAVE INFO PACKET TO REHAB RN. CALLED REPORT TO [facility] NURSE. ANSWERED QUESTIONS/CONCERNS. DISCUSSED F/U APTS WOULD NEED TO BE MADE BY [facility] FACILITY TO COORDINATE WITH THEIR TRANSPORTATION, THEY HAVE LIMITED SERVICES, NURSE CONFIRMED THEY WOULD MAKE DISCHARGE F/U APTS. PATIENT NOW DISCHARGED.
--- NOTE | 2022-04-29 10:31 | NUR ---
Telephone Claims Representative contacted [facility] and confirmed knot picker cloth time of 1000. SW notified Hospitalist and nursing staff of knot picker cloth. SW faxed discharge orders and negative covid results to [facility]. Discharge Plan: [facility]
== END 2022-04-29 10:15 | DRG 377 ==
LOC: ICU 12:03 → SURG 13:46
PROVIDERS: Student in an Organized Health Care Education/Training Program; ADMIT Internal Medicine
PROC: 02HV33Z Insertion of Infusion Device into Superior Vena Cava, Percutaneous Approach (ICD-10-PCS; principal; 2022-04-22)
PROC: 0DB68ZX Excision of Stomach, Via Natural or Artificial Opening Endoscopic, Diagnostic (ICD-10-PCS; 2022-04-24)
PROC: 0DB78ZX Excision of Stomach, Pylorus, Via Natural or Artificial Opening Endoscopic, Diagnostic (ICD-10-PCS; 2022-04-24)
DX: K25.4 Chronic or unspecified gastric ulcer with hemorrhage (principal); L89.153 Pressure ulcer of sacral region, stage 3; G93.41 Metabolic encephalopathy; R57.1 Hypovolemic shock; D62 Acute posthemorrhagic anemia; N17.9 Acute kidney failure, unspecified; N39.0 Urinary tract infection, site not specified; E87.2 Acidosis; F03.91 Unspecified dementia, unspecified severity, with behavioral disturbance; F05 Delirium due to known physiological condition; E05.00 Thyrotoxicosis with diffuse goiter without thyrotoxic crisis or storm; I25.10 Atherosclerotic heart disease of native coronary artery without angina pectoris; E03.9 Hypothyroidism, unspecified; G89.29 Other chronic pain; E87.5 Hyperkalemia; I10 Essential (primary) hypertension; E10.65 Type 1 diabetes mellitus with hyperglycemia; E10.40 Type 1 diabetes mellitus with diabetic neuropathy, unspecified; K26.9 Duodenal ulcer, unspecified as acute or chronic, without hemorrhage or perforation; I95.9 Hypotension, unspecified; F32.A Depression, unspecified; E78.5 Hyperlipidemia, unspecified; E10.649 Type 1 diabetes mellitus with hypoglycemia without coma; Z96.652 Presence of left artificial knee joint; Z86.73 Personal history of transient ischemic attack (TIA), and cerebral infarction without residual deficits; Z90.49 Acquired absence of other specified parts of digestive tract; Z92.21 Personal history of antineoplastic chemotherapy; Z79.82 Long term (current) use of aspirin; Z79.4 Long term (current) use of insulin; Z85.038 Personal history of other malignant neoplasm of large intestine; Z79.01 Long term (current) use of anticoagulants; Z79.02 Long term (current) use of antithrombotics/antiplatelets; Z79.52 Long term (current) use of systemic steroids
CPT/HCPCS: 99232-AI; 99233-AI; 99239; C1751; C9113; J0696; J1450; J1815; J2060; J2543; J2704; J7030; J7120; P9016